=== PATIENT | female | born 1990 | race Two or more races ===

== ENCOUNTER 2023-01-30 11:04 | Emergency (ER) | payer OTHER ==
[~2023-01-30] VITALS: Ht 152.4 cm; Wt 49.9 kg
[2023-01-30] MEDS ORDERED: OMEPRAZOLE40 MG PO (11:26)
== END 2023-01-30 16:02 ==
LOC: ER 11:04
DX: M25.512 Pain in left shoulder (principal); M25.519 Pain in unspecified shoulder; X58.XXXA Exposure to other specified factors, initial encounter; Y93.9 Activity, unspecified; Y92.9 Unspecified place or not applicable; Y99.9 Unspecified external cause status